=== PATIENT | male | born 2000 | race Two or more races ===

== ENCOUNTER 2021-08-15 15:41 | Emergency (ER) | payer BC, OTHER ==
[~2021-08-15] VITALS: Ht 190.5 cm; Wt 97.5 kg
[2021-08-15] MEDS ORDERED: DONNATAL 5ml ORAL Elix (BELLADONNA ALK-PHENOBARB) PO ONE (17:15)
[2021-08-15] MEDS ORDERED: ALUM & MAG HYDROX-SIMETH LIQ(MAALOX) 30 ML PO ONE (17:15)
[2021-08-15] MEDS ORDERED: LIDOCAINE VISCOUS 2% 15ML UD PO ONE (17:15)
[2021-08-15 17:21] LABS: BUN/Creatinine Ratio 15.4; Calcium 8.9 mg/dL (8.5-10.1); Potassium 3.4 mmol/L (3.5-5.1)
[2021-08-15 17:25] LABS: Bilirubin, Total 0.7 mg/dL (0.2-1.0); Total Protein 7.2 g/dL (6.4-8.2)
[2021-08-15] MEDS ORDERED: PANT40TA2 PO (17:30)
[2021-08-15] MEDS ORDERED: POTASSIUM EFFERVESENT TAB 25 MEQ PO ONE (17:45)
[2021-08-15 19:59] LABS: Basophils # (auto) 0 10 ^3/uL (0-0.2); Basophils % (auto) 0.2 % (0.0-2.0); Eosinophils # (auto) 0 10 ^3/uL (0-0.8); Hematocrit 46.2 % (41.0-53.0); Hemoglobin 15.3 g/dL (13.5-17.5); Lymphocytes # (auto) 0.4 10 ^3/uL (0.4-5.4); Lymphocytes % (auto) 4.2 % (10.0-50.0); Mean Corpuscular Hemoglobin 29.2 pg (28.0-32.0); Mean Corpuscular Hgb Conc. 33.1 g/dL (32.0-36.0); Mean Corpuscular Volume 88.1 fL (80.0-100.0); Monocytes # (auto) 0.3 10 ^3/uL (0-1.3); Monocytes % (auto) 3.6 % (0.0-12.0); Neutrophils # (auto) 8.4 10 ^3/uL (1.6-8.6); Nucleated Red Blood Cells % 0.1 %; Red Blood Cells 5.24 10^6/uL (4.5-5.90); White Blood Cell 9.1 10^3/uL (4.4-10.8)
[2021-08-15 21:05] VITALS: BP 115/55
== END 2021-08-15 21:05 | disposition home or self-care (01) ==
LOC: ER 15:41
DX: K29.70 Gastritis, unspecified, without bleeding (principal); E87.6 Hypokalemia; Z90.89 Acquired absence of other organs
CPT/HCPCS: 36415; 74176; 80053; 85025

== ENCOUNTER → 2024-04-30 | Outpatient (CLI) | payer OTHER ==
[~2024-04-30] MED LIST: PANT40TA2 PO
[2024-04-30 09:52] LABS: Urine Bacteria None Seen /hpf (None Seen)
[2024-04-30 10:19] LABS: Basophils # (auto) 0 10 ^3/uL (0-0.2); Basophils % (auto) 0.4 % (0.0-2.0); Eosinophils # (auto) 0 10 ^3/uL (0-0.8); Eosinophils % (auto) 0.6 % (0.0-7.0); Hematocrit 48.3 % (41.0-53.0); Hemoglobin 16.4 g/dL (13.5-17.5); Lymphocytes % (auto) 31.8 % (10.0-50.0); Mean Corpuscular Hemoglobin 30.8 pg (28.0-32.0); Mean Corpuscular Hgb Conc. 33.9 g/dL (32.0-36.0); Mean Corpuscular Volume 90.8 fL (80.0-100.0); Monocytes # (auto) 0.4 10 ^3/uL (0-1.3); Monocytes % (auto) 6.9 % (0.0-12.0); Neutrophils # (auto) 3.8 10 ^3/uL (1.6-8.6); Neutrophils % (auto) 60.3 % (37.0-80.0); Platelet Count (auto) 206 10^3/uL (140-450); Red Blood Cells 5.32 10^6/uL (4.5-5.90); Red Cell Distribution Width 13.5 % (11.8-14.3); White Blood Cell 6.3 10^3/uL (4.4-10.8)
[2024-04-30 10:26] LABS: Urine Blood Negative /uL (Negative); Urine Clarity Clear (Clear); Urine Color Light-Yellow (Yellow); Urine Mucus FEW (None Seen); Urine Protein, UAD Negative (Negative); Urine Specific Gravity 1.027 (1.001-1.035); Urine Squamous Epithelial Cell FEW /hpf (<5); Urine Urobilinogen Normal (Negative); Urine WBC 1 /HPF (0-3); Urine pH 5.5 (5.0-9.0)
[2024-04-30 10:41] LABS: Alanine Aminotransferase 25 U/L (7-40); Alkaline Phosphatase 78 U/L (46-116); Anion Gap 5 (5-15); Aspartate Aminotransferase 18 U/L (13-40); BUN/Creatinine Ratio 11.1 (10.0-20.0); Blood Urea Nitrogen 14 mg/dL (9-23); Calcium 10.2 mg/dL (8.7-10.4); Carbon Dioxide 30 mmol/L (20-31); Glucose 98 mg/dL (74-106); LDL Cholesterol 98 mg/dL (< 100); Potassium 4.5 mmol/L (3.5-5.1); Sodium 142 mmol/L (136-145); Triglycerides 50 mg/dL (< 150)
[2024-04-30 10:42] LABS: Bilirubin, Total 0.5 mg/dL (0.2-1.0); Cholesterol 157 mg/dL (< 200); HDL Cholesterol 48 mg/dL (40-59); Total Protein 7.3 g/dL (5.7-8.2)
[2024-04-30 10:48] LABS: Chloride 107 mmol/L (98-107)
[2024-05-01 09:48] LABS: Hepatitis A Total Antibody Positive (Negative); Hepatitis B Core Total AB Negative (Negative); Hepatitis B Surface Antibody Negative (Negative); Hepatitis B Surface Antigen Negative (Negative); Hepatitis C Antibody Negative (Negative)
== END | disposition home or self-care (01) ==
LOC: LAB 09:35
PROVIDERS: ATTEND Licensed Practical Nurse
DX: Z00.01 Encounter for general adult medical examination with abnormal findings (principal); Z11.3 Encounter for screening for infections with a predominantly sexual mode of transmission; Z13.220 Encounter for screening for lipoid disorders; Z13.29 Encounter for screening for other suspected endocrine disorder; E55.9 Vitamin D deficiency, unspecified
CPT/HCPCS: 36415; 80053; 80061; 81001; 82306; 82607; 83036; 84443; 85025; 86703; 86704; 86706; 86708; 86762; 86765; 86803; 87340

== ENCOUNTER → 2024-09-23 | Day surgery (SDC) | payer BC ==
[2024-09-22 10:11] LABS: Urine Bacteria None Seen /hpf (None Seen)
[2024-09-22 10:20] LABS: Basophils # (auto) 0 10 ^3/uL (0-0.2); Basophils % (auto) 0.4 % (0.0-2.0); Eosinophils # (auto) 0.1 10 ^3/uL (0-0.8); Eosinophils % (auto) 0.8 % (0.0-7.0); Hematocrit 40.9 % (41.0-53.0); Hemoglobin 14.4 g/dL (13.5-17.5); Lymphocytes # (auto) 2.8 10 ^3/uL (0.4-5.4); Lymphocytes % (auto) 34.3 % (10.0-50.0); Mean Corpuscular Hemoglobin 31.1 pg (28.0-32.0); Mean Corpuscular Hgb Conc. 35.3 g/dL (32.0-36.0); Mean Corpuscular Volume 88.1 fL (80.0-100.0); Monocytes # (auto) 0.6 10 ^3/uL (0-1.3); Monocytes % (auto) 7.9 % (0.0-12.0); Neutrophils # (auto) 4.6 10 ^3/uL (1.6-8.6); Neutrophils % (auto) 56.6 % (37.0-80.0); Platelet Count (auto) 152 10^3/uL (140-450); Red Blood Cells 4.64 10^6/uL (4.5-5.90); White Blood Cell 8.1 10^3/uL (4.4-10.8)
[2024-09-22 10:26] LABS: Urine Blood Negative /uL (Negative); Urine Clarity Clear (Clear); Urine Color Light-Yellow (Yellow); Urine Protein, UAD Negative (Negative); Urine Specific Gravity 1.029 (1.001-1.035); Urine Squamous Epithelial Cell FEW /hpf (<5); Urine Urobilinogen Normal (Negative); Urine WBC 4 /HPF (0-3); Urine pH 6.5 (5.0-9.0)
[2024-09-22 10:30] LABS: Partial Thromboplastin Time 27.2 SEC (24.5-34.5); Prothrombin Time 10.6 sec (9.3-11.8)
[2024-09-22 10:57] LABS: Alanine Aminotransferase 16 U/L (7-40); Alkaline Phosphatase 80 U/L (46-116); Anion Gap 9 (5-15); BUN/Creatinine Ratio 11.9 (10.0-20.0); Blood Urea Nitrogen 14 mg/dL (9-23); Calcium 10.1 mg/dL (8.7-10.4); Chloride 103 mmol/L (98-107); Glucose 87 mg/dL (74-106); Sodium 144 mmol/L (136-145); Total Protein 6.7 g/dL (5.7-8.2)
[2024-09-22 10:58] LABS: Albumin 4.6 g/dL (3.2-4.8); Aspartate Aminotransferase 22 U/L (<34); Bilirubin, Total 0.4 mg/dL (0.2-1.0)
[2024-09-22 11:09] LABS: Carbon Dioxide 32 mmol/L (20-31); Potassium 3.4 mmol/L (3.5-5.1)
[~2024-09-23] VITALS: Ht 193 cm; Wt 90.7 kg
[~2024-09-23] MED LIST changes: +ASCO500T11 GT; +GLYCOPYRROLATE 0.2 MG/ML 1ML VIAL ONE; +HYDROmorphone HCL 2 MG/ML VL/or syr IV PRN; +HYDROmorphone HCL 2 MG/ML VL/or syr ONE; +MEPERIDINE HCL (25 MG/ML) 1ML VIAL IV PRN; -PANT40TA2 PO; +PROPOFOL 10 MG/ML 20 ML IV ONE; +ePHEDrine SULFATE 50 MG/ML AMP ONE; +fentaNYL CITRATE 100 MCG/2 ML VL ONE
[2024-09-23] MEDS: ceFAZolin 2 GM/D5W50ml 50 ML IV ONE (10:10)
[2024-09-23] MEDS: LIDOCAINE W/ EPINEPHRINE 1% 20ML VIAL ONE (10:23)
[2024-09-23] MEDS: BACITRACIN TOP OINT 1 UD PKG TOP ONE (10:26)
[2024-09-23 10:48] VITALS: PULSE 91; RESP 12; TEMP 97.8; O2SAT 97
--- NOTE | 2024-09-23 10:57 | DVHNC2 ---
Procedure - OPERATIVE REPORT Pre-op. Diagnosis: Spermatoceles - Left Post-op. Diagnosis: Same as pre-op diagnosis Operation: Spermatocelectomy - LEFT Anesthesia: General Indications: He is here to proceed with left spermatocelectomy. Complications including but not limited to infection, bleeding, damage to surrounding structures, hematoma formation, recurrence of spermatocele and injury to testicle or spermatic cord structures, testicular compromise and atrophy were all discussed. Informed consent was obtained. Details of Procedure: Patient is taken to Operating suite and given appropriate anesthesia. After shaving, prepping and draping the patient in the supine position, a transverse incision was made into the left hemiscrotum. Subsequent tissues were taken down with Bovie to the level of tunica vaginalis. The left testicle was brought out through the incision and his spermatocele was identified. This was, opened, drained and resected. Specimen was handed off. The testicle was placed back into the hemiscrotum in normal anatomic position and hemostasis was established. Base of the spermatocele was ligated with 2-0 Silk suture. Proper layer closures were performed using Vicryl suture in continued fashion. Skin was closed with 2-0 Vicryl interrupted sutures. 1% Lidocaine was injected in the skin. Patient tolerated the procedure well. Final counts were correct. Patient was awoken and taken to recovery room in stable condition. Specimens: Left Spermatocele 2 cm Complications: None Findings: As above FLEX FRANK MD Sep 23, 2024 10:57
--- NOTE | 2024-09-23 10:58 | DVHDS2 ---
New Physician D'charge PN Admitting Diagnosis Admitting Diagnosis Left epididymal cyst/spermatocele Discharge Diagnosis Same Operations or Procedures Left spermatocele removal Reason(s) For Hospitalization Surgery Treatment Plan Discharge Condition of Discharge Good Disposition Home Discharge Instructions Diet: Regular Activity: Light activity Activity comment: Scrotal support Medications: Given Follow Up Care Follow Up/Referral: Two weeks follow up Discharge Statement: "Patient was advised to return to the ER or call 911 if any headaches, dizziness, shortness of breath, chest pain, abdominal pain, bleeding, fevers, or worsening of medical condition. Patient was counseled about treatment plan, medications, possible side effects, patientverbalized understanding. All questions were answered to the best of my ability. This discharge took greater then 30 minutes in planning, reviewing documentation, counseling the patient, and discussing with other team members." FLEX FRANK MD Sep 23, 2024 10:58
[2024-09-23] MEDS: ACETAMINOPHEN IV 1000 MG/100ML (10MG/ML) IV PRN (11:53)
[2024-09-23 12:15] VITALS: BP 125/70; PULSE 60; RESP 16; O2SAT 98
== END | disposition home or self-care (01) ==
LOC: SUR 06:45
PROVIDERS: ATTEND Urology
DX: N43.41 Spermatocele of epididymis, single (principal); Z79.899 Other long term (current) drug therapy; Z90.49 Acquired absence of other specified parts of digestive tract; Z98.890 Other specified postprocedural states; Z88.8 Allergy status to other drugs, medicaments and biological substances
CPT/HCPCS: 36415; 54840; 80053; 81001; 85025; 85610; 85730; 87086; 88305; J0690; J1171; J2704; J3010; J0131